=== PATIENT | female | born 1955 | race Caucasian/White ===

== ENCOUNTER 2016-10-04 08:10 | Day surgery (SDC) | payer MEDICAID ==
[2016-10-04 09:28] VITALS: PULSE 74
--- NOTE | 2016-10-04 09:46 | PDGENHP ---
History & Physical Chief Complaint: diarrhea, hx collagenous colitis History of Present Illness: diarrhea Pertinent Past, Social, Family History: reviewed Cardiorespiratory Assessment: normal. Pt with no ride so will plan on unsedated colon as tolerated.
[2016-10-04 10:08] VITALS: RESP 16
--- NOTE | 2016-10-04 11:50 | GPN ---
[f rep st] PROCEDURE NOTE DATE OF PROCEDURE: 10/04/2016 PROCEDURE PERFORMED: Flexible sigmoidoscopy with biopsy. CONSENT: Informed consent was obtained from the patient after an explanation of risks, benefits, an d alternatives. MEDICATION GIVEN: None. ANESTHESIA: None. The patient did not have a ride home and therefore we decided to perform a flex sig without sedation to at least allow biopsies regarding her history of collagenous colitis and yessi rrhea. INDICATION: Diarrhea, change in bowel habits. DESCRIPTION OF EXAM: The forward viewing colonoscope was advanced through the anal orifice and as f ar as tolerated, to the mid sigmoid colon. At that point, discomfort for the patient was significan t and therefore the scope was not advanced any further. Retroflexion was performed in the rectum. Findings as below. COMPLICATIONS: None immediate. ESTIMATED BLOOD LOSS: None. FINDINGS: 1. Moderate to severe sigmoid diverticulosis was present. 2. Sigmoid colon and rectal mucosa were normal appearing without overt evidence of colitis. Biopsi es were taken to assess for underlying collagenous/microscopic colitis. 3. No polyps or other mucosal abnormalities were seen. IMPRESSION: Sigmoid diverticulosis and otherwise normal unsedated sigmoidoscopy. RECOMMENDATIONS: 1. Await biopsy results. 2. Reschedule upper endoscopy and colonoscopy with anesthesia once patient is able to obtain a ride . She was not sure if she would reschedule and that is why the sigmoidoscopy was performed today. 3. Follow up with primary care provider otherwise. /[id number]/MODL
[2016-10-04 15:03] VITALS: TEMP 97.7
[2016-10-04 15:05] VITALS: BP 136/80; O2SAT 95
== END 2016-10-04 10:54 | disposition home or self-care (01) ==
LOC: FSGY 08:10
PROVIDERS: ATTEND Internal Medicine
PROC: 0DBN8ZX Excision of Sigmoid Colon, Via Natural or Artificial Opening Endoscopic, Diagnostic (ICD-10-PCS; principal; 2016-10-04 10:00)
DX: K52.831 Collagenous colitis (principal); K57.90 Diverticulosis of intestine, part unspecified, without perforation or abscess without bleeding

== ENCOUNTER 2016-10-18 08:37 | Day surgery (SDC) | payer MEDICAID ==
--- NOTE | 2016-10-18 09:31 | PDGENHP ---
History & Physical Chief Complaint: barretts, diarrhea History of Present Illness: see above Pertinent Past, Social, Family History: reviewed Relevant Physical Exam: NAD. RRR. ctab Cardiorespiratory Assessment: see above
--- NOTE | 2016-10-18 09:52 | PDANEPAE ---
ANE History of Present Illness screening colon, and GERD ANE Past Medical History - Cardiovascular History Hx Hypertension: Yes Hx Arrhythmias: No Hx Chest Pain: No Hx Coronary Artery / Peripheral Vascular Disease: No Hx CHF / Valvular Disease: No Hx Palpitations: No - Pulmonary History Hx COPD: No Hx Asthma/Reactive Airway Disease: Yes Hx Recent Upper Respiratory Infection: No Hx Oxygen in Use at Home: No Hx Sleep Apnea: No Sleep Apnea Screening Result - Last Documented: Negative Pulmonary History Comment: 2 cigaretts a day. Asthma - Neurologic History Hx Cerebrovascular Accident: No Hx Seizures: No Hx Dementia: No Neurologic History Comment: fell, hit head 2 weeks ago, did not see "felt out of it for few days". Did black out. - Endocrine History Hx Diabetes: No - Renal History Hx Renal Disorders: No - Liver History Hx Hepatic Disorders: No - Neurological & Psychiatric Hx Hx Neurological and Psychiatric Disorders: Yes Neurological / Psychiatric History Comment: arthritic spine. anxiety- on Rx. - Cancer History Hx Cancer: No - Congenital Disorder History Hx Congenital Disorders: No - GI History Hx Gastrointestinal Disorders: Yes Gastrointestinal History Comment: Diverticulitis, colitis, Celiac disease, Carbajal's esophagus? diarrhea. - Other Health History Other Health History: Arthritis in spine, joints. Fell and hit head 2 weeks ago - Chronic Pain History Chronic Pain: Yes (spine) - Surgical History Prior Surgeries: knee x2 2006. ectopic 28 yr ago. elbow sx. foot sx. hand sx ANE Review of Systems Review of systems is: negative - Exercise capacity Exercise capacity: >=4 METS METS (RN): 4 METS ANE Patient History - Allergies Allergies/Adverse Reactions: Hayfever Allergy (Uncoded 03/29/14 16:13) - Home Medications Home Medications: Mirtazapine [Remeron] 0 mg PO AD 08/08/11 [Last Taken 10/17/16] Topiramate [Topamax] 0 mg PO AD 08/08/11 [Last Taken 10/18/16] Tramadol HCl [Ryzolt 200mg ER] 0 mg PO AD 08/08/11 [Last Taken 10/16/16] Trazodone HCl 0 mg PO AD 08/08/11 [Last Taken 10/17/16] busPIRone HCL [Buspar] 0 08/08/11 [Last Taken 10/18/16] Albuterol 5 mg/ml INH 10/17/16 [Last Taken 10/17/16] Hydrochlorothiazide 10/17/16 [Last Taken 10/17/16] Propranolol HCl 10/17/16 [Last Taken 10/17/16] Singulair 10/17/16 [Last Taken 10/17/16] - NPO status NPO Since - Liquids (Date): 10/17/16 NPO Since - Liquids (Time): 19:00 NPO Since - Solids (Date): 10/17/16 NPO Since - Solids (Time): 06:30 - Anes Hx Anes Hx: no prior problems - Smoking Hx Smoking Status: Light smoker - Alcohol Use Alcohol Use: None ANE Labs/Vital Signs - Labs Result Diagrams: 10/18/16 09:30 - Vital Signs Blood Pressure: 135/87 Heart Rate: 96 Respiratory Rate: 16 O2 Sat (%): 96 Height: 170.18 cm Weight: 56.245 kg ANE Physical Exam - Airway Mallampati Score: Class 2 - Pulmonary Pulmonary: no respiratory distress - Cardiovascular Cardiovascular: regular rate and rhythym - ASA Status ASA Status: II ANE Anesthesia Plan Anesthesia Plan: GA with mask
[2016-10-18 10:08] LABS: ANION GAP 13 mEq/L (8-16); CALCIUM 9.3 mg/dL (8.5-10.4); CARBON DIOXIDE 19 mEq/l (22-31); CHLORIDE 108 mEq/L (97-110); CREATININE 0.8 mg/dL (0.6-1.0); GLOMERULAR FILTRATION RATE > 60; GLUCOSE 131 mg/dL (70-100); POTASSIUM 3.9 mEq/L (3.5-5.2); SODIUM 140 mEq/L (134-144)
[2016-10-18] MEDS ORDERED: MIDAZOLAM 2 MG/2 ML VIAL IVP ONE (12:52)
[2016-10-18] MEDS ORDERED: ONDANSETRON 4 MG/2 ML VIAL IVP PRN (13:16)
[2016-10-18] MEDS ORDERED: D5W LR 500 ML IV PRN (13:16)
[2016-10-18] MEDS ORDERED: ACETAMINOPHEN 500 MG TAB PO PRN (13:16)
[2016-10-18] MEDS ORDERED: NALOXONE HCL 0.4 MG/ML INJ IVP PRN (13:16)
[2016-10-18 14:18] VITALS: BP 129/84; TEMP 98.8
[2016-10-18 14:21] VITALS: PULSE 79
[2016-10-18 14:43] VITALS: RESP 11; O2SAT 97
--- NOTE | 2016-10-18 19:24 | GPN ---
[f rep st] PROCEDURE NOTE DATE OF PROCEDURE: 10/18/2016 PROCEDURE: Esophagogastroduodenoscopy and colonoscopy with biopsies. INDICATIONS: History of Carbajal's esophagus, diarrhea, history of possible collagenous colitis. CONSENT: Informed consent was obtained from the patient after an explanation of risks, benefits, an d alternatives to the procedure. COMPLICATIONS: None. MEDICATIONS GIVEN: Per Anesthesia. ESTIMATED BLOOD LOSS: None. DESCRIPTION OF EXAM: After adequate sedation was achieved, the endoscope was advanced under direct vision through the mouth, oropharynx, and as far as the 2nd portion of the duodenum. Retroflexion w as performed in the stomach. Views throughout the upper GI tract were good. Prep was good. Patien t tolerance was good. After the upper endoscopy portion of the exam, the patient was repositioned and the colonoscope was advanced under direct vision through the anal orifice and as far as the cecum and terminal ilium. V iews were good. Patient tolerance was good. Prep was good after cleansing. Findings are as below. Photographic documentation was made of the appendiceal orifice, ileocecal valve, terminal ileum, a nd retroflexion in the rectum. FINDINGS: 1. Esophagus: Carbajal's esophagus was seen from 36 to 39 cm in the distal esophagus. The distal m argin was difficult to evaluate due to the presence of a small hiatal hernia. 2 bottles of biopsies with 4 quadrant biopsies every 2 cm were obtained. The area was also viewed under narrow band imag ing, and no significant mucosal abnormalities were found. 2. Stomach was notable for a small hiatal hernia and moderate gastritis with erythema, and some sma ll amounts of blood. There was no active bleeding. There was no obvious ulceration. Biopsies were obtained from the antrum and body to rule out H pylori. 3. Duodenum: The duodenum was normal in the bulb and through to the 2nd portion. Random biopsies were obtained throughout the duodenum to assess for celiac disease. 4. The terminal ilium was viewed during colonoscopy and had normal mucosa. 5. Colonic mucosa was normal throughout the colon. Biopsies were obtained from the ascending, boone sverse, descending, sigmoid, and rectum to assess for microscopic colitis. 6. Sigmoid diverticulosis was noted. 7. Small internal hemorrhoids were noted. IMPRESSION: No obvious source of symptoms was seen although biopsies are pending. Surveillance bio psies for Carbajal's esophagus were obtained and other notable findings include a gastritis and sigmo id diverticulosis. RECOMMENDATIONS: 1. Await numerous biopsy results. 2. Tentative plan for repeat upper endoscopy in 5 years for history of Carbajal's. 3. Omeprazole 40 mg daily for 2-3 months is recommended to assess for possible response with regard to her symptoms, to treating her gastritis. 4. If microscopic colitis is found on biopsies, would recommend a course of Uceris or budesonide elizabeth ramirez. /[id number]/MODL
== END 2016-10-18 15:05 | disposition home or self-care (01) ==
LOC: FSGY 08:37
PROVIDERS: ATTEND Internal Medicine
PROC: 0DB28ZX Excision of Middle Esophagus, Via Natural or Artificial Opening Endoscopic, Diagnostic (ICD-10-PCS; principal; 2016-10-18 09:15)
PROC: 0DB38ZX Excision of Lower Esophagus, Via Natural or Artificial Opening Endoscopic, Diagnostic (ICD-10-PCS; principal; 2016-10-18 09:15)
PROC: 0DBE8ZX Excision of Large Intestine, Via Natural or Artificial Opening Endoscopic, Diagnostic (ICD-10-PCS; principal; 2016-10-18 09:15)
PROC: 0DB98ZX Excision of Duodenum, Via Natural or Artificial Opening Endoscopic, Diagnostic (ICD-10-PCS; principal; 2016-10-18 09:15)
PROC: 0DB68ZX Excision of Stomach, Via Natural or Artificial Opening Endoscopic, Diagnostic (ICD-10-PCS; principal; 2016-10-18 09:15)
DX: K52.831 Collagenous colitis (principal); K22.70 Barrett's esophagus without dysplasia; K29.70 Gastritis, unspecified, without bleeding; K57.30 Diverticulosis of large intestine without perforation or abscess without bleeding; K44.9 Diaphragmatic hernia without obstruction or gangrene; K64.8 Other hemorrhoids
CPT/HCPCS: J2250

== ENCOUNTER 2017-11-07 02:24 | Emergency (ER) | payer MEDICAID ==
[2017-11-07] MEDS ORDERED: MAG HYDROX/AL HYDROX/SIMETH 30 ML UDCUP PO ONE (02:47)
[2017-11-07] MEDS ORDERED: LIDOCAINE 2% VISCOUS 15 ML UDCUP PO ONE (02:47)
[2017-11-07] MEDS ORDERED: NS 1,000 ML IV ONE (02:47)
[2017-11-07] MEDS ORDERED: FAMOTIDINE 20 MG/NACL 50 ML IV ONE (02:47)
[2017-11-07] MEDS ORDERED: HYOSCYAMINE SULFATE 0.125 MG TAB PO ONE (02:47)
[2017-11-07] MEDS ORDERED: ONDANSETRON 4 MG/2 ML VIAL IVP ONE ×2 (03:04→05:44)
[2017-11-07 03:08] LABS: PLATELET COUNT 176 10^3/uL (150-400)
--- NOTE | 2017-11-07 03:30 | EDPHY ---
H & P Stated Complaint: EPIGASTRIC PAIN, ETOH Time Seen by Provider: 11/07/17 02:26 HPI/ROS: HPI The patient presents with epigastric abdominal pain which has been present since about 10:00 p.m. Tonight when she lie down in bed. Earlier in the night, she had eaten dinner at about 6:00 p.m. And then had several alcoholic drinks. The pain is in her epigastrium and her chest and radiates toward her back. It is stabbing in nature and moderate in severity. She has had associated nausea without vomiting. She denies any dark or bloody stools. She has a history of esophagitis, hiatal hernia and Carbajal's esophagus diagnosed by EGD about 1 year ago. She is supposed to be taking a PPI though is non compliant. She tried sitting upright to see if this would help the pain though it did not.. REVIEW OF SYSTEMS Constitutional: No fever, no chills. Eyes: No discharge. ENT: No sore throat. Cardiovascular: Positive for chest pain, no palpitations. Respiratory: No cough, no shortness of breath. Gastrointestinal: See HPI Genitourinary: No hematuria. Musculoskeletal: No back pain. Skin: No rashes. Neurological: No headache. PMHx: Carbajal's esophagus, hiatal hernia, esophagitis Soc Hx: Alcohol use PHYSICAL General Appearance: Alert, no distress Eyes: Pupils equal and round no pallor or injection ENT, Mouth: Mucous membranes moist Respiratory: There are no retractions, lungs are clear to auscultation Cardiovascular: Regular rate and rhythm Gastrointestinal: Abdomen is soft and non-tender, no masses, bowel sounds normal Neurological: A&O, moves all extremities Skin: Warm and dry, no rashes Musculoskeletal: Neck is supple non tender Extremities: symmetrical, full range of motion Psychiatric: Patient is oriented X 3, there is no agitation Source: Patient, EMS, Old records Exam Limitations: No limitations - Personal History Current Tetanus Diphtheria and Acellular Pertussis (TDAP): Unsure - Medical/Surgical History Hx Asthma: No Hx Chronic Respiratory Disease: No Hx Diabetes: No Hx Cardiac Disease: No Hx Renal Disease: No Hx Cirrhosis: No Hx Alcoholism: Yes Hx HIV/AIDS: No Hx Splenectomy or Spleen Trauma: No Other PMH: Recent sleep study, colitis, hx foot surgery, knee surgery, chronic pain, ARTHRITIS, GERD, ASTHMA, ANXIETY - Social History Smoking Status: Current some day smoker Constitutional: Initial Vital Signs Temperature (C) 36.8 C 11/07/17 02:25 Heart Rate 74 11/07/17 02:25 Respiratory Rate 16 11/07/17 02:25 Blood Pressure 131/82 H 11/07/17 02:25 O2 Sat (%) 100 11/07/17 02:25 O2 Delivery Mode Room Air O2 (L/minute) 2 Allergies/Adverse Reactions: Hayfever Allergy (Uncoded 03/29/14 16:13) Home Medications: Medication Instructions Recorded Mirtazapine [Remeron] 0 mg PO AD 08/08/11 Topiramate [Topamax] 0 mg PO AD 08/08/11 Tramadol HCl [Ryzolt 200mg ER] 0 mg PO AD 08/08/11 Trazodone HCl 0 mg PO AD 08/08/11 busPIRone HCL [Buspar] 0 08/08/11 Albuterol 5 mg/ml INH 10/17/16 Hydrochlorothiazide 10/17/16 Propranolol HCl 10/17/16 Singulair 10/17/16 Diolefenac 11/07/17 Estradiol 11/07/17 Indomethacin 11/07/17 Omeprazole 11/07/17 Oxycodone HCl 11/07/17 Tylenol 11/07/17 VYVANSE 11/07/17 Medical Decision Making - Diagnostics EKG Interpretation: EKG: Complete interpretation has been separately recorded in the [facility] archive. Summary impression: Normal sinus rhythm, unchanged from EKG dated June of 2015. Imaging Results: Imaging Impressions Chest X-Ray 11/07/17 02:48 Impression: No acute pulmonary disease. Chest x-ray two view shows no cardiomegaly, no infiltrate, interpreted by me, radiology interpretation is pending. Imaging: I viewed and interpreted images myself Differential Diagnosis: 61-year-old female with history of esophagitis presents from home with epigastric and chest discomfort radiating toward her back. Differential diagnosis includes ACS, GERD, gastritis, aortic dissection, pancreatitis. In the emergency department, patient was treated with IV fluids and medications with resolution of her symptoms. She was able to tolerate fluids with minimal difficulty and no vomiting. Labs were checked and were unremarkable. I did perform serial troponins because of an initially abnormal EKG. However when I reviewed her outpatient EKGs I see that these changes are not new and have been present for several years which is reassuring. She does not have any widening of her mediastinum, and I think she is low risk for aortic dissection. She feels well enough to go home. I have advised her to restart her PPI on a daily basis, perform some dietary modification, avoid alcohol, not eat 2 hr before dinner. She can follow up with her primary care doctor if her symptoms continue. She is happy with this plan and will be discharged home. - Data Points Laboratory Results: Laboratory Results 11/07/17 03:07 11/07/17 02:48 Medications Given: Discontinued Medications Al Hydroxide/Mg Hydroxide (Maalox Susp) 30 ml PO ONCE ONE Stop: 11/07/17 02:48 Last Admin: 11/07/17 03:02 Dose: 30 ml Hyoscyamine Sulfate (Levsin, Hyomax-Sl) 0.25 mg PO ONCE ONE Stop: 11/07/17 02:48 Last Admin: 11/07/17 03:02 Dose: 0.25 mg Sodium Chloride (Ns) 1,000 mls @ 0 mls/hr IV EDNOW ONE; Wide Open PRN Reason: Protocol Stop: 11/07/17 02:48 Last Admin: 11/07/17 03:03 Dose: 1,000 mls Famotidine/Sodium Chloride (Pepcid 20 Mg (Premix)) 50 mls @ 200 mls/hr IV EDNOW ONE Stop: 11/07/17 03:01 Last Admin: 11/07/17 03:02 Dose: 50 mls Lidocaine (Lidocaine 2% Viscous) 15 ml PO ONCE ONE Stop: 11/07/17 02:48 Last Admin: 11/07/17 03:02 Dose: 15 ml Ondansetron HCl (Zofran) 4 mg IVP EDNOW ONE Stop: 11/07/17 03:05 Last Admin: 11/07/17 03:06 Dose: 4 mg Ondansetron HCl (Zofran) 4 mg IVP EDNOW ONE Stop: 11/07/17 05:45 Last Admin: 11/07/17 05:53 Dose: 4 mg Point of Care Test Results: Chemistry 11/07/17 11/07/17 04:34 02:51 POC Troponin I 0.00 ng/mL ng/mL 0.00 ng/mL ng/mL (0.00-0.08) (0.00-0.08) Departure - Departure Disposition: Home, Routine, Self-Care Clinical Impression: Epigastric abdominal pain Vomiting Qualifiers: Vomiting type: unspecified Vomiting Intractability: non-intractable Nausea presence: with nausea Qualified Code(s): R11.2 - Nausea with vomiting, unspecified Condition: Good Instructions: Diet for Stomach Ulcers and Gastritis (ED), Esophagitis (ED) Additional Instructions: I recommend that you take your medication for your esophagus on a daily basis. I recommend you avoid any spicy or acidic foods or any alcoholic beverages. Please follow-up with your primary care or GI doctor. You should return to the emergency department if your worse in any way. Referrals: [facility] [Provider Group] - As per Instructions
[2017-11-07 04:10] VITALS: BP 129/81
--- NOTE | 2017-11-07 06:58 | CPEKG ---
Test Reason : OPEN Blood Pressure : / mmHG Vent. Rate : 069 BPM Atrial Rate : 069 BPM P-R Int : 134 ms QRS Dur : 102 ms QT Int : 400 ms P-R-T Axes : 031 022 103 degrees QTc Int : 429 ms Sinus rhythm Probable left atrial enlargement Consider inferior infarct Nonspecific T abnormalities, lateral leads Confirmed by Lydia Polk ([id number]) on 11/07/2017 6:58:02 AM Referred By: Confirmed By:Lydia Polk
== END 2017-11-07 06:15 | disposition home or self-care (01) ==
LOC: EDUNIT#
DX: R10.13 Epigastric pain (principal); K22.70 Barrett's esophagus without dysplasia; K44.9 Diaphragmatic hernia without obstruction or gangrene; Z87.19 Personal history of other diseases of the digestive system; F17.200 Nicotine dependence, unspecified, uncomplicated
CPT/HCPCS: 84484-PO; 96365; G0480; J2405

== ENCOUNTER → 2018-02-11 | Outpatient (CLI) | payer MEDICAID | LOC: BMCIMAGING 13:55 | PROVIDERS: ATTEND Podiatrist Foot & Ankle Surgery | DX: M19.072 Primary osteoarthritis, left ankle and foot (principal) ==

== ENCOUNTER → 2018-03-05 | Outpatient (CLI) | payer MEDICAID | LOC: FIMAGING 15:05 | PROVIDERS: ATTEND Nurse Practitioner Family | DX: Z12.31 Encounter for screening mammogram for malignant neoplasm of breast (principal) ==

== ENCOUNTER 2018-03-10 14:14 | Day surgery (SDC) | payer MEDICAID ==
[2018-03-10] MEDS ORDERED: LR 1,000 ML IV ONE (14:34)
[2018-03-10] MEDS ORDERED: LIDOCAINE 2% 5 ML SDV ONE (15:00)
[2018-03-10] MEDS ORDERED: BUPIVACAINE 0.5% 30 ML SDV ONE (15:00)
[2018-03-10] MEDS ORDERED: ceFAZolin 1 GM VIAL ONE (15:01)
--- NOTE | 2018-03-10 15:14 | PDANEPAE ---
ANE History of Present Illness L 1st metatarsal ORIF ANE Past Medical History - Cardiovascular History Hx Hypertension: Yes Hx Arrhythmias: No Hx Chest Pain: No Hx Coronary Artery / Peripheral Vascular Disease: No Hx CHF / Valvular Disease: No Hx Palpitations: No Cardiovascular History Comment: Usual BP on meds: 120/80 - Pulmonary History Hx COPD: No Hx Asthma/Reactive Airway Disease: Yes Hx Recent Upper Respiratory Infection: No Hx Oxygen in Use at Home: No Hx Sleep Apnea: No Sleep Apnea Screening Result - Last Documented: Negative Pulmonary History Comment: Asthma - WELL CONTROLLED. INHALERS - Neurologic History Hx Cerebrovascular Accident: No Hx Seizures: No Hx Dementia: No Neurologic History Comment: OCCAS HEADACHES. MILD CONCUSSION 2 MOS AGO - Endocrine History Hx Diabetes: No Hypothyroid: No Hyperthyroid: No Obesity: no - Renal History Hx Renal Disorders: No - Liver History Hx Hepatic Disorders: No - Neurological & Psychiatric Hx Hx Neurological and Psychiatric Disorders: Yes Neurological / Psychiatric History Comment: ADHD. anxiety, INSOMNIA - Cancer History Hx Cancer: No - Congenital Disorder History Hx Congenital Disorders: No - GI History GERD: moderate Hx Gastrointestinal Disorders: Yes Gastrointestinal History Comment: Diverticulitis, colitis, Celiac disease, Carbajal's esophagus - Other Health History Other Health History: OSTEOARTHRITIS-SPINE, NECK, FOOT - Chronic Pain History Chronic Pain: Yes (SPINE, NECK & FOOT) - Surgical History Prior Surgeries: R SHOULDER REPLACED. knee x2 2006. ectopic 28 yr ago. elbow sx. foot sx. hand sx ANE Review of Systems Review of Systems: - Exercise capacity METS (RN): 4 METS ANE Patient History - Allergies Allergies/Adverse Reactions: Hayfever Allergy (Uncoded 03/29/14 16:13) - Home Medications Home Medications: Topiramate [Topamax] 0 mg PO AD 08/08/11 [Last Taken 03/09/18] busPIRone HCL [Buspar] 0 08/08/11 [Last Taken 03/09/18] Hydrochlorothiazide 10/17/16 [Last Taken 03/09/18] Singulair 10/17/16 [Last Taken 03/10/18 05:30] Tylenol 11/07/17 [Last Taken 1 Week Ago ~03/03/18] VYVANSE 11/07/17 [Last Taken 03/08/18] Advair Hfa 115-21 Mcg Inhaler 03/03/18 [Last Taken 03/09/18] Albuterol Hfa Anes Only 03/03/18 [Last Taken 03/10/18 05:30] Ambien 03/03/18 [Last Taken 01/28/18] Amitriptyline HCl 03/03/18 [Last Taken 03/09/18] Gabapentin 03/03/18 [Last Taken 03/08/18] Bartley 5-325 Tablet 03/03/18 [Last Taken 03/10/18 05:30] Premarin Vaginal (*) 03/03/18 [Last Taken 03/05/18] Ranitidine HCl 03/03/18 [Last Taken 03/10/18 05:30] - NPO status NPO Since - Liquids (Date): 03/10/18 NPO Since - Liquids (Time): 00:00 NPO Since - Solids (Date): 03/10/18 NPO Since - Solids (Time): 00:00 - Smoking Hx Smoking Status: Former smoker ANE Labs/Vital Signs - Vital Signs Blood Pressure: 168/108 Heart Rate: 93 Respiratory Rate: 18 O2 Sat (%): 98 Height: 167.64 cm Weight: 58.967 kg ANE Physical Exam - Airway Neck exam: FROM (c/p neck pain) Mallampati Score: Class 1 Mouth exam: poor dentition - Pulmonary Pulmonary: clear to auscultation - Cardiovascular Cardiovascular: regular rate and rhythym, tachycardia - ASA Status ASA Status: II ANE Anesthesia Plan Anesthesia Plan: GA with mask
[2018-03-10] MEDS ORDERED: MIDAZOLAM 2 MG/2 ML VIAL IVP ONE (15:15)
[2018-03-10] MEDS ORDERED: fentaNYL 100 MCG/2 ML INJ ONE (15:28)
[2018-03-10] MEDS ORDERED: PROPOFOL 200 MG/20 ML VIAL ONE ×3 (15:29→17:31)
[2018-03-10] MEDS ORDERED: ceFAZolin 1 GM/5 ML SYR ONE (15:56)
[2018-03-10] MEDS ORDERED: ceFAZolin 2 GM/DEXTROSE 100 ML IV ONE (16:10)
--- NOTE | 2018-03-10 16:12 | PDHPUP ---
History & Physical Update H&P update statement: This history and physical update is based on an assessment of the patient which was completed after admission or registration (within 24 hours), but prior to the surgery/procedure. H&P update: H&P reviewed & patient examined
[2018-03-10] MEDS ORDERED: PROPOFOL/EMULSION 500 MG/50 ML BOTTLE IV ONE (16:15)
[2018-03-10] MEDS ORDERED: CEFAZOLIN 2 GM/DEXTROSE/100 ML BAG IV ONE (16:16)
[2018-03-10] MEDS ORDERED: HYDROCODONE/APAP 5/325 TAB PO PRN (17:12)
[2018-03-10] MEDS ORDERED: fentaNYL 100 MCG/2 ML INJ IVP PRN (17:12)
[2018-03-10] MEDS ORDERED: ALBUTEROL 3 ML DEYVIAL IH PRN (17:12)
[2018-03-10] MEDS ORDERED: LR 500 ML IV PRN (17:12)
[2018-03-10] MEDS ORDERED: ONDANSETRON 4 MG/2 ML VIAL IVP PRN (17:12)
[2018-03-10] MEDS ORDERED: ACETAMINOPHEN 500 MG TAB PO PRN (17:12)
[2018-03-10] MEDS ORDERED: HYDROmorphONE/DILAUDID 2 MG/ML INJ IVP PRN (17:12)
[2018-03-10] MEDS ORDERED: PROMETHAZINE HCL 25 MG/ML INJ IVP PRN (17:12)
[2018-03-10] MEDS ORDERED: NS 500 ML IV PRN (17:12)
[2018-03-10] MEDS ORDERED: NALOXONE HCL 0.4 MG/ML INJ IVP PRN (17:12)
[2018-03-10] MEDS ORDERED: DEXAMETHASONE 4 MG/ML VIAL IVP PRN (17:12)
[2018-03-10] MEDS ORDERED: oxyCODONE IR 5 MG TAB PO PRN (17:12)
--- NOTE | 2018-03-10 18:23 | POSTOPPROG ---
Post Op Note Date of Operation: 03/10/18 Surgeon: Micheline Smith Anesthesiologist: Dr. Saravia Anesthesia: IV Sedation (Local MAC) Pre-op Diagnosis: Left hallux rigidus Post-op Diagnosis: Left hallux rigidus Indication: Painful, arthritic 1st metatarsophalangeal joint Procedure: Left 1st MPJ fusion Inf/Abcess present in the surg proc area at time of surgery?: No Depth: Deep Incisional (Fascial) EBL: Minimal (PAT at 225 mm Hg 87 minutes) Complications: None
[2018-03-10 20:00] VITALS: BP 168/104
--- NOTE | 2018-03-10 23:20 | GOP ---
DATE OF OPERATION: SURGEON: Micheline Smith DPM ANESTHESIA: Local with monitored anesthesia care. ANESTHESIOLOGIST: George Saravia MD. PREOPERATIVE DIAGNOSIS: Left foot hallux rigidus. POSTOPERATIVE DIAGNOSIS: Left foot hallux rigidus. PROCEDURE PERFORMED: Left 1st metatarsophalangeal joint fusion. FINDINGS: Arthritis in the 1st metatarsophalangeal joint ESTIMATED BLOOD LOSS: Minimal. DESCRIPTION OF PROCEDURE: Under mild sedation, the patient was brought into the operating room and placed on the operating table in supine position. Following IV sedation, local anesthesia was obtained about the left foot using 20 cc of a 1:1 mixture 0.5% Marcaine plain and 2% lidocaine plain. The foot was then scrubbed, prepped, and draped in the usual aseptic manner. A sterile pneumatic ankle tourniquet was placed about the left ankle. The foot was exsanguinated and tourniquet inflated to 225 mmHg. Attention was then directed to the left 1st metatarsophalangeal joint where incision was made medial and parallel to the tendon of the extensor hallucis longus. The incision was deepened down to the level of the 1st metatarsophalangeal joint. The periosteum and capsule were reflected medially and laterally to expose the 1st metatarsophalangeal joint at the operative site. The dorsal osteophytes were removed with a rongeur. The guidewire was used and the cup and cone reamers used to debride the 1st metatarsal head and base of the proximal phalanx to place into a good position for the fusion. Once this was performed the bone ends were subchondrally fenestrated with a K-wire. The wound was irrigated with copious sterile saline Ancef irrigation. At this point the joint was placed into appropriate position and temporally fixated with a K-wire. The George MTP plate was then placed over the joint. The proximal screws were placed first and then the compression lag screw through the plate second. The distal screws were then placed across the proximal phalanx. Good compression with the screws was noted. The position of the fusion and screws was evaluated under fluoroscopy and found to be in good position. The wound was then irrigated with copious sterile saline Ancef irrigation. DBM bone putty was placed about the fusion site. The periosteum and capsule were repaired with 3- 0 Vicryl. The subcuticular layer was repaired with 4-0 Monocryl and the skin with 4-0 Prolene in a running subcuticular suture technique. The incision was dressed with Mastisol, Steri-Strips, Xeroform, 4 x 4 gauze, Dilan, Pietro wrap. Tourniquet was deflated at 87 minutes. A prompt hyperemic response was noted to all digits of the left foot. The patient was then transferred to the recovery room with vital signs stable and vascular status intact. Following a period of postoperative monitoring she will be discharged home and advised to ice and elevate her foot. She is advised to keep the dressing clean, dry, and intact. She will be nonweightbearing on her foot for the next 4-6 weeks. She will follow up with me in the next week for wound check and dressing change. MATERIALS: George 1st MTP CP plate left foot with 3.0 x 12 mm locking screw, 3.0 x 16 mm nonlocking screw x2, 3.6 x 22 mm partially threaded compression screw with the T8 Star delivery route driver. DBM bone putty. INJECTABLES: 20 ml 1:1 mixture or 0.5% Marcaine plain and 2% Lidocaine plain preop. 15 ml 0.5% Marcaine plain postop. HEMOSTASIS: Pneumatic ankle tourniquet at 225 mmHg for 87 minutes. /[id number]/MODL MTDD
--- NOTE | 2018-03-11 14:01 | POSTANESTH ---
Post Anesthetic Evaluation Cardiovascular Status: Normal, Stable Respiratory Status: Normal, Stable Level of Consciousness/Mental Status: Can Participate in Eval Pain Control: Adequate, Prn Tx Ordered Nausea/Vomiting Control: Adequate, Prn Tx Ordered Complications Possibly Related to Anesthesia: None Noted
== END 2018-03-10 19:53 | disposition home or self-care (01) ==
LOC: FSGY 14:14
PROVIDERS: ATTEND Podiatrist Foot & Ankle Surgery
PROC: 0SGN04Z Fusion of Left Metatarsal-Phalangeal Joint with Internal Fixation Device, Open Approach (ICD-10-PCS; principal; 2018-03-10 16:15)
DX: M20.22 Hallux rigidus, left foot (principal); I10 Essential (primary) hypertension; J45.909 Unspecified asthma, uncomplicated; F41.9 Anxiety disorder, unspecified; G47.00 Insomnia, unspecified; F90.9 Attention-deficit hyperactivity disorder, unspecified type; K22.70 Barrett's esophagus without dysplasia; Z87.19 Personal history of other diseases of the digestive system; Z96.611 Presence of right artificial shoulder joint; Z87.891 Personal history of nicotine dependence
CPT/HCPCS: C1713; J0690; J2250; J2704; J3010

== ENCOUNTER → 2018-04-14 | Outpatient (CLI) | payer MEDICAID | LOC: BMCIMAGING 10:35 | PROVIDERS: ATTEND Podiatrist Foot & Ankle Surgery | DX: Z47.1 Aftercare following joint replacement surgery (principal); Z96.698 Presence of other orthopedic joint implants ==

== ENCOUNTER → 2018-05-05 | Outpatient (CLI) | payer MEDICAID | LOC: BMCIMAGING 10:11 | PROVIDERS: ATTEND Podiatrist Foot & Ankle Surgery | DX: Z09 Encounter for follow-up examination after completed treatment for conditions other than malignant neoplasm (principal); S93.144A Subluxation of metatarsophalangeal joint of right lesser toe(s), initial encounter; M25.475 Effusion, left foot; M77.32 Calcaneal spur, left foot ==

== ENCOUNTER 2018-06-16 13:15 | Day surgery (SDC) | payer MEDICAID ==
[2018-06-16] MEDS ORDERED: ceFAZolin 2 GM/DEXTROSE 100 ML IV ONE (13:38)
[2018-06-16] MEDS ORDERED: LR 1,000 ML IV ONE (13:39)
[2018-06-16] MEDS ORDERED: BUPIVACAINE 0.5% 30 ML SDV ONE (14:27)
[2018-06-16] MEDS ORDERED: LIDOCAINE 2% 5 ML SDV ONE (14:27)
[2018-06-16] MEDS ORDERED: ceFAZolin 1 GM/5 ML SYR ONE (14:28)
--- NOTE | 2018-06-16 15:01 | PDHPUP ---
History & Physical Update H&P update statement: This history and physical update is based on an assessment of the patient which was completed after admission or registration (within 24 hours), but prior to the surgery/procedure. H&P update: H&P reviewed & patient examined, no change in patient's condition since H&P completed
[2018-06-16] MEDS ORDERED: MIDAZOLAM 2 MG/2 ML VIAL ONE (15:03)
[2018-06-16] MEDS ORDERED: fentaNYL 100 MCG/2 ML INJ ONE (15:07)
[2018-06-16] MEDS ORDERED: PROPOFOL/EMULSION 500 MG/50 ML BOTTLE IV ONE ×2 (15:07→16:02)
--- NOTE | 2018-06-16 15:09 | PDANEPAE ---
ANE History of Present Illness here for R foot bunionectomy ANE Past Medical History - Cardiovascular History Hx Hypertension: Yes Hx Arrhythmias: No Hx Chest Pain: No Hx Coronary Artery / Peripheral Vascular Disease: No Hx CHF / Valvular Disease: No Hx Palpitations: No Cardiovascular History Comment: pcp monitors - Pulmonary History Hx COPD: No Hx Asthma/Reactive Airway Disease: Yes Hx Recent Upper Respiratory Infection: No Hx Oxygen in Use at Home: No Hx Sleep Apnea: No Sleep Apnea Screening Result - Last Documented: Negative Pulmonary History Comment: Asthma - WELL CONTROLLED. INHALERS - Neurologic History Hx Cerebrovascular Accident: No Hx Seizures: No Hx Dementia: No Neurologic History Comment: OCCAS HEADACHES. MILD CONCUSSION 2 MOS AGO - Endocrine History Hx Diabetes: No - Renal History Hx Renal Disorders: No - Liver History Hx Hepatic Disorders: No - Neurological & Psychiatric Hx Hx Neurological and Psychiatric Disorders: Yes Neurological / Psychiatric History Comment: ADHD. anxiety, INSOMNIA - Cancer History Hx Cancer: No - Congenital Disorder History Hx Congenital Disorders: No - GI History Hx Gastrointestinal Disorders: Yes Gastrointestinal History Comment: Diverticulitis, colitis, Celiac disease, Carbajal's esophagus - Other Health History Other Health History: OSTEOARTHRITIS-SPINE, NECK, FOOT. wears glasses. upper front retainer in place - Chronic Pain History Chronic Pain: Yes (SPINE, NECK & FOOT) - Surgical History Prior Surgeries: 03/10/18 left toe fusion 1st MTP with [facility]. R SHOULDER REPLACED. knee x2 2006. ectopic 28 yr ago. elbow sx. foot sx. hand sx ANE Review of Systems Review of systems is: negative Review of Systems: - Exercise capacity Exercise capacity: >=4 METS METS (RN): 4 METS ANE Patient History - Allergies Allergies/Adverse Reactions: Hayfever Allergy (Uncoded 06/09/18 19:09) - Home Medications Home medications: home medication list seen and reviewed Home Medications: Topiramate [Topamax] AD 08/08/11 [Last Taken 06/15/18 20:00] busPIRone HCL [Buspar] 08/08/11 [Last Taken 06/15/18 19:00] Hydrochlorothiazide 10/17/16 [Last Taken 06/15/18 20:00] VYVANSE 11/07/17 [Last Taken 06/03/18] Advair Hfa 115-21 Mcg Inhaler 03/03/18 [Last Taken 06/15/18 20:00] Albuterol Hfa Anes Only 03/03/18 [Last Taken 03/10/18 05:30] Ambien 03/03/18 [Last Taken 06/15/18 20:00] Amitriptyline HCl 03/03/18 [Last Taken 06/15/18 20:00] Gabapentin 03/03/18 [Last Taken 06/15/18 20:00] [place] 5-325 Tablet 03/03/18 [Last Taken 06/15/18 20:00] Ranitidine HCl 03/03/18 [Last Taken 06/15/18 20:00] Lidocaine 06/09/18 [Last Taken 06/15/18 20:00] Pantoprazole Sodium 06/09/18 [Last Taken 06/15/18 20:00] - NPO status NPO Status: no food or drink >8 hours NPO Since - Liquids (Date): 06/15/18 NPO Since - Liquids (Time): 20:00 NPO Since - Solids (Date): 06/15/18 NPO Since - Solids (Time): 20:00 - Smoking Hx Smoking Status: Former smoker - Family Anes Hx Family Hx Anesthesia Complications: none ANE Labs/Vital Signs - Vital Signs Vital Signs: reviewed preoperatively; see RN documention for details Blood Pressure: 149/100 Heart Rate: 88 Respiratory Rate: 16 O2 Sat (%): 97 Height: 167.64 cm Weight: 58.967 kg ANE Physical Exam - Airway Neck exam: FROM Mallampati Score: Class 1 Mouth exam: normal dental/mouth exam - Pulmonary Pulmonary: no respiratory distress - Cardiovascular Cardiovascular: regular rate and rhythym - ASA Status ASA Status: II ANE Anesthesia Plan Anesthesia Plan: GA with mask
[2018-06-16] MEDS ORDERED: ONDANSETRON 4 MG/2 ML VIAL IVP PRN (16:11)
[2018-06-16] MEDS ORDERED: NALOXONE HCL 0.4 MG/ML INJ IVP PRN (16:11)
[2018-06-16] MEDS ORDERED: ALBUTEROL 3 ML DEYVIAL IH PRN (16:11)
[2018-06-16] MEDS ORDERED: oxyCODONE IR 5 MG TAB PO PRN (16:11)
[2018-06-16] MEDS ORDERED: HYDROCODONE/APAP 5/325 TAB PO PRN (16:11)
[2018-06-16] MEDS ORDERED: fentaNYL 100 MCG/2 ML INJ IVP PRN (16:11)
[2018-06-16] MEDS ORDERED: NS 500 ML IV PRN (16:11)
[2018-06-16] MEDS ORDERED: LR 500 ML IV PRN (16:11)
--- NOTE | 2018-06-16 16:54 | POSTOPPROG ---
Post Op Note Date of Operation: 06/16/18 Surgeon: Micheline Smith Anesthesiologist: Dr. Saravia Anesthesia: IV Sedation (Local anesthesia: 5 cc 2% Lidocain plain. 30 cc 0.5% Marcaine plain.) Pre-op Diagnosis: Right Tailors bunion, metatarsalgia Post-op Diagnosis: Right Tailors bunion, metatarsalgia Indication: Painful right foot Tailors bunion, metatarsalgia 4th MPJ Procedure: Right Tailors bunionectomy, 4th MPJ capsulotomy Findings: Tailors bunion Inf/Abcess present in the surg proc area at time of surgery?: No Depth: Deep Incisional (Fascial) EBL: Minimal (Pneumatic ankle tourniquet @225 mm Hg 52 minutes.) Complications: None Clean Closure Performed: Yes
--- NOTE | 2018-06-16 17:14 | GOP ---
[f rep st] OPERATIVE REPORT DATE OF OPERATION: 06/16/2018 SURGEON: Micheline Smith DPM ANESTHESIA: Local with monitored anesthesia care. ANESTHESIOLOGIST: Dr. Saravia. PREOPERATIVE DIAGNOSIS: 1. Right foot tailor's bunion. 2. Right foot 4th metatarsophalangeal joint metatarsalgia with digital deformities of the 5th toe cu rling underneath the 4th toe. POSTOPERATIVE DIAGNOSIS: 1. Right foot tailor's bunion. 2. Right foot 4th metatarsophalangeal joint metatarsalgia with digital deformities of the 5th toe cu rling underneath the 4th toe. PROCEDURE PERFORMED: 1. Right foot tailor's bunionectomy. 2. Right foot 4th metatarsal phalangeal joint capsulotomy. FINDINGS: ESTIMATED BLOOD LOSS: Minimal. DESCRIPTION OF PROCEDURE: Under mild sedation, the patient was brought into the operating room, plac ed on the operating table in supine position. Following IV sedation, local anesthesia was obtained a bout the right foot using 0.5% Marcaine plain and 2% lidocaine plain. The foot was then scrubbed, pr epped, and draped in the usual aseptic manner. A sterile pneumatic ankle tourniquet was placed about the right ankle. The foot was exsanguinated and tourniquet inflated to 225 mmHg. Attention was then directed to the 5th metatarsal head where an incision was made along the 5th metat arsophalangeal joint. The incision was deepened through subcutaneous tissue with care taken to ident blair and retract all vital neural and vascular structures. All bleeders were cauterized as necessary. Linear capsulotomy was then performed through the 5th metatarsophalangeal joint. The periosteum an d capsule were reflected medially and laterally. The 5th metatarsal head lateral eminence was resect ed utilizing the sagittal saw. At this point, a chevron osteotomy was then performed to the 5th meta tarsal metaphyseal region. The 5th metatarsal head was then shifted medially and impacted upon the r emaining 5th metatarsal shaft. It was temporarily fixated with two 0.045 inch K-wires. Following st andard AO principles and techniques, 2 Synthes 2.0 cortical screws were placed across the osteotomy s ite with excellent compression noted. The remaining lateral bone shelf was resected with the saw. A ll rough edges were smoothed with a bur. The wound was irrigated with copious sterile saline, Ancef irrigation. The periosteum and capsule were repaired with 3-0 Vicryl. The subcuticular layer was re paired with 4-0 Monocryl and the skin a 4 Prolene in a running subcuticular suture technique. Attention was then directed to the 4th metatarsophalangeal joint where an incision was made medially. The incision was deepened through subcutaneous tissue with care taken to identify and retract all v ital neurovascular structures. All bleeders were cauterized as necessary. The 4th metatarsophalange al joint capsule was then incised laterally and then tightened down medially to help move the 4th toe toward the 3rd toe and away from the 5th toe. This was repaired with a 3-0 Vicryl. The wound was i rrigated with copious sterile saline, Ancef irrigation. The subcuticular layer was repaired with 4 M onocryl and the skin with 4-0 Prolene in horizontal suture technique. The skin incisions were dresse d with Mastisol, Steri-Strips, Xeroform, 4 x 4 gauze, Dilan, and Pietro wrap. Tourniquet was deflated a t 52 minutes. A prompt hyperemic response was noted to the right foot. Following a period of postoperative monitoring, the patient will be discharged home, advised to ice a nd elevate her foot. She is advised to keep the dressing clean, dry, and intact. She is weightbeari ng as tolerated in the walking boot. She will follow up with me next week for wound check and dressi ng change. INJECTABLES: 5 cc of 2% lidocaine plain, 30 cc of 0.5% Marcaine plain. HEMOSTASIS: Pneumatic ankle tourniquet at 225 mmHg for 52 minutes. MATERIALS: Synthes 2.0 cortical screws across the 5th metatarsal. /[id number]/MODL
[2018-06-16 18:28] VITALS: BP 157/94
== END 2018-06-16 18:20 | disposition home or self-care (01) ==
LOC: FSGY 13:15
PROVIDERS: ATTEND Podiatrist Foot & Ankle Surgery
PROC: 0QBN0ZZ Excision of Right Metatarsal, Open Approach (ICD-10-PCS; principal; 2018-06-16 15:00)
PROC: 0SNM0ZZ Release Right Metatarsal-Phalangeal Joint, Open Approach (ICD-10-PCS; principal; 2018-06-16 15:00)
DX: M21.621 Bunionette of right foot (principal); M77.41 Metatarsalgia, right foot; I10 Essential (primary) hypertension
CPT/HCPCS: C1713; J0690; J2250; J2704; J3010

== ENCOUNTER → 2018-06-26 | Outpatient (CLI) | payer MEDICAID | LOC: FIMAGING 12:17 | PROVIDERS: ATTEND Family Medicine | DX: M51.36 Other intervertebral disc degeneration, lumbar region (principal); M51.37 Other intervertebral disc degeneration, lumbosacral region; M51.34 Other intervertebral disc degeneration, thoracic region; M51.35 Other intervertebral disc degeneration, thoracolumbar region; M46.96 Unspecified inflammatory spondylopathy, lumbar region; M46.97 Unspecified inflammatory spondylopathy, lumbosacral region; M48.07 Spinal stenosis, lumbosacral region; M48.061 Spinal stenosis, lumbar region without neurogenic claudication; M48.05 Spinal stenosis, thoracolumbar region ==

== ENCOUNTER → 2018-07-04 | Outpatient (CLI) | payer MEDICAID | LOC: FIMAGING 15:00 | PROVIDERS: ATTEND Family Medicine | DX: S62.302D Unspecified fracture of third metacarpal bone, right hand, subsequent encounter for fracture with routine healing (principal) ==

== ENCOUNTER → 2018-07-23 | Outpatient (CLI) | payer MEDICAID | LOC: FIMAGING 13:42 | PROVIDERS: ATTEND Podiatrist Foot & Ankle Surgery | DX: Z47.89 Encounter for other orthopedic aftercare (principal) ==

== ENCOUNTER → 2018-08-11 | Outpatient (CLI) | payer MEDICAID | LOC: BMCIMAGING 09:15 ==